=== PATIENT | male | born 1950 | race Caucasian/White ===

== ENCOUNTER → 2025-02-02 07:56 | Outpatient (REF) | payer MEDICARE, OTHER, SELFPAY ==
[2025-02-02 09:10] LABS: Hematocrit 35.8 % (39.0-52.0); Hemoglobin 12.3 g/dL (13.0-18.0); Mean Corp Hgb Conc. 34.4 g/dL (33.0-37.0); Mean Corpuscular Volume 92.5 fL (80.0-94.0); Platelet Count 226 10^3/uL (130-400); Red Cell Dist. Width 11.9 % (11.5-14.5)
[2025-02-02 09:45] LABS: Blood Urea Nitrogen 16 mg/dl (9-20); Calcium 10.1 mg/dl (8.4-10.2); Carbon Dioxide 28 mmol/L (22-30); Chloride 98 mmol/L (98-107); Glucose 103 mg/dl (70-99); Potassium 5.6 mmol/L (3.5-5.1); Sodium 130 mmol/L (135-145); eGFR > 60.00
== END ==
LOC: SDSPAT 07:56
PROVIDERS: ATTENDING PHYSICIAN Surgery; FAMILY PHYSICIAN Physician Assistant Medical
DX: Z01.818 Encounter for other preprocedural examination (principal)
CPT/HCPCS: 36415; 80048; 85027; 93005

== ENCOUNTER 2025-02-21 06:26 | Day surgery (SDC) | payer MEDICARE, OTHER, SELFPAY ==
[2025-02-02 14:28] VITALS: BMI 22.1
--- NOTE | 2025-02-13 13:10 | PTCARENOTE ---
Abnormal K+ 5.6 collected 02/02/25 [address] to [facility]ja at Dr Herrera's office.
--- NOTE | 2025-02-14 15:27 | PTCARENOTE ---
Dr Moffett made aware of K 5.6, would like repeated at bedside. Ordered by surgeon.
[2025-02-21] VITALS (8 sets, daily range): BP systolic 119–162; BP diastolic 60–98; BMI 22.1
[2025-02-21] MEDS: TYLENOL 1000 MG PO (07:27)
[2025-02-21] MEDS: NORMOSOL-R/PLASMALYTE-A 1000 IV (07:28)
[2025-02-21 07:42] LABS: Potassium 4.6 mmol/L (3.5-5.1)
[2025-02-21 10:12] LABS: Glucose - Point of Care 132 mg/dl (70-99)
[2025-02-21] MEDS: DILAUDID 0.25 MG IV ×2 (10:13→10:27)
[2025-02-21] MEDS: MOTRIN 600 MG PO (11:37)
== END 2025-02-21 11:40 | disposition home or self-care (01) ==
LOC: SDS 06:26
PROVIDERS: ATTENDING PHYSICIAN Surgery; FAMILY PHYSICIAN Physician Assistant Medical
DX: K40.90 Unilateral inguinal hernia, without obstruction or gangrene, not specified as recurrent (principal)
CPT/HCPCS: 49650; 82962; 84132; C1781